=== PATIENT | male | born 1950 | race Caucasian/White ===

== ENCOUNTER 2020-10-17 03:40 | Emergency (ER) | payer MEDICARE, OTHER ==
[2020-10-17 04:14] LABS: BASOPHIL 0.3 % (0-2); EOSINOPHIL 0.1 % (0-7); HCT 43.9 % (42.0-52.0); HGB 14.4 g/dl (13.2-18.0); MCH 27.2 pg (25.0-31.0); MCHC 32.8 g/dL (32.0-36.0); MCV 82.8 fL (78.0-100.0); NEUTROPHIL 80.2 % (41-80); NRBC 0; PLT 201 K/uL (150-400); RDW 14.4 % (11.5-14.0); WBC 14.3 K/uL (4.0-10.5)
[2020-10-17 04:27] LABS: ALBUMIN 3.8 g/dL (3.4-5.0); BILIRUBIN - TOTAL 0.2 mg/dL (0.2-1.0); CREATININE 1.21 mg/dL (0.67-1.17); GLOBULIN (CALCULATION) 3.9 g/dL; POTASSIUM 4.2 mmol/L (3.5-5.1); TOTAL PROTEIN 7.7 g/dL (6.4-8.2)
[2020-10-17] MEDS ORDERED: OXY-IR 5MG5 MG PO (06:20)
[2020-10-17] MEDS ORDERED: ZOFRAN4 M1 PO (06:20)
[2020-10-17] MEDS ORDERED: FLOMAX 0.4 MG0.4 MG PO (06:20)
[2020-10-17 06:24] LABS: BILIRUBIN NEGATIVE (NEGATIVE); BLOOD 3+ Ery/uL (NEGATIVE); CLARITY CLEAR (CLEAR); COLOR YELLOW (YELLOW); GLUCOSE (U) NORMAL (NORMAL); LEUKOCYTES NEGATIVE Leu/uL (NEGATIVE); NITRITE NEGATIVE (NEGATIVE); PROTEIN NEGATIVE (NEGATIVE); UROBILINOGEN 0.2 mg/dL (0.2-1.0); pH 5.5 (5.0-9.0)
[2020-10-17 06:33] LABS: BACTERIA 1+; URINARY RBC 20-50
== END 2020-10-17 06:40 | disposition home or self-care (01) ==
LOC: FER 03:40
PROVIDERS: Emergency Medicine
DX: N13.2 Hydronephrosis with renal and ureteral calculous obstruction (principal)
CPT/HCPCS: 36415; 71045; 80053; 81001; 83690; 84484; 85025; 87076; 87088; 87186; 93005; J1170; J1885; J2405; J7030; Q9967